=== PATIENT | male | born 1965 | race Caucasian/White ===

== ENCOUNTER 2017-08-22 15:40 | Emergency (ER) | payer BC ==
[2017-08-22 15:48] VITALS: RESP 18; O2SAT 100
--- NOTE | 2017-08-22 16:30 | C.PDOC ---
History Of Present Illness 52 year old male presents to the ER with a complaint of sudden onset of dizziness and lightheadedness. Patient states he has been sick for the past week with a productive cough with yellow sputum, fever, congestion; he was seen by Dr. Chaney who started him on augmentin and reports he has been feeling better. Today he states he got up feeling well, ate breakfast; a few hours later he felt hungry and while his was making him lunch he suddenly felt dizzy, lightheaded, and diaphoretic. Patient states he was able to sit and eat, afterwards he sat on the cough with the fan on and his symptoms resolved after a few minutes. Patient checked his blood sugar after eating but states his blood sugar is usually 250-300 after eating but today it was only 140. He tried calling his doctor but the office was closed, he went to a clinic where they checked his blood pressure and found it to be elevated at 150/110. Patient state he is on lisinopril, he saw his PMD recently who noticed his pressure was high and changed his dose from 10mg to 20mg. Denies chest pain, palpitations, SOB, abdominal pain, nausea, or vomiting. He feels comfortable at this time. Time Seen by Provider: 08/22/17 16:05 Chief Complaint (Nursing): Dizziness/Lightheaded History Per: Patient History/Exam Limitations: no limitations Onset/Duration Of Symptoms: Hrs Current Symptoms Are (Timing): Gone Activity At Onset Of Symptoms: Sitting Seizure Or Post-ictal Symptoms: None Fall Associated With With Symptoms: No Recent travel outside of the [place]: No - Symptoms Of CVA Associated Symptoms: denies: Impaired Speech, Seizure Activity, New Vision Deficit(Left), New Vision Deficit(Right), Decreased Ability To Walk, New Confusion Past Medical History Reviewed: Historical Data, Nursing Documentation, Vital Signs Vital Signs: Last Vital Signs Temp 97.3 F L 08/22/17 15:43 Pulse 99 H 08/22/17 15:43 Resp 18 08/22/17 15:43 BP 175/110 H 08/22/17 15:43 Pulse Ox 100 08/22/17 16:35 - Medical History PMH: HTN Family History: States: Unknown Family Hx - Social History Hx Alcohol Use: Yes Hx Substance Use: No - Immunization History Hx Tetanus Toxoid Vaccination: No Hx Influenza Vaccination: Yes Hx Pneumococcal Vaccination: No Review Of Systems Constitutional: Positive for: Sweats. Negative for: Fever, Chills Cardiovascular: Positive for: Light Headedness. Negative for: Chest Pain, Palpitations Respiratory: Negative for: Shortness of Breath Gastrointestinal: Negative for: Nausea, Vomiting, Abdominal Pain Neurological: Positive for: Dizziness Physical Exam - Physical Exam Appears: Non-toxic, No Acute Distress, Other (Blood sugar 190) Skin: Normal Color, Warm, Dry Head: Atraumatic, Normacephalic Eye(s): bilateral: Normal Inspection Oral Mucosa: Moist Neck: Normal Lymphatic: No Adenopathy Chest: Symmetrical, No Tenderness Cardiovascular: Rhythm Regular Respiratory: Normal Breath Sounds, No Rales, No Rhonchi, No Wheezing Gastrointestinal/Abdominal: Soft, No Tenderness Pulses: Left Carotid: Normal, Right Carotid: Normal Neurological/Psych: Oriented x3, Normal Speech, Normal Cognition, Normal Cranial Nerves, Normal Motor, Normal Sensation ED Course And Treatment - Laboratory Results Result Diagrams: 08/22/17 16:28 08/22/17 16:28 Lab Interpretation: No Acute Changes Interpretation Of Abnormal: glucose 216 ECG: Interpreted By Me, Viewed By Me ECG Rhythm: Sinus Rhythm ECG Interpretation: Normal Interpretation Of ECG: No acute changes Rate From EC O2 Sat by Pulse Oximetry: 100 (Room air) Pulse Ox Interpretation: Normal - Radiology CXR: Interpreted by Me CXR Interpretation: Yes: No Acute Disease Progress Note: EKG, blood work, CXR, and urinalysis ordered. Reevaluation Time: 17:10 Reassessment Condition: Improved (BP 143/100 and patient is asymptomatic) Disposition - Disposition Referrals: Annamarie Chaney MD [Medical Doctor] - Disposition: HOME/ ROUTINE Disposition Time: 17:10 Condition: IMPROVED Instructions: Low Blood Sugar in People With Diabetes, Dizziness, Nonvertigo, ( DC) Forms: [employer] ([place]ian) - Clinical Impression Clinical Impression: Dizziness - Scribe Statement The provider has reviewed the documentation as recorded by the Scribjaime Ernst All medical record entries made by the Scribe were at my direction and personally dictated by me. I have reviewed the chart and agree that the record accurately reflects my personal performance of the history, physical exam, medical decision making, and the department course for this patient. I have also personally directed, reviewed, and agree with the discharge instructions and disposition.
[2017-08-22 16:31] LABS: BASO % 0.4 % (0.0-2.0); EOS # 0.1 K/uL (0.0-0.7); EOS % 1.5 % (0.0-4.0); HEMOGLOBIN 15.5 g/dL (12.0-18.0); LYMPH # 1.7 K/uL (1.0-4.3); LYMPH % 18.1 % (20.0-40.0); MEAN CELL VOLUME 86.7 fL (80.0-94.0); MEAN CORPUSCULAR HEMOGLOBIN 29.2 pg (27.0-31.0); MEAN CORPUSCULAR HGB CONC 33.7 g/dL (33.0-37.0); MEAN PLATELET VOLUME 9.1 fL (7.2-11.7); MONO # 0.6 K/uL (0.0-0.8); NEUT # 6.7 K/uL (1.8-7.0); NRBC % 0.1 % (0.0-2.0); RBC 5.3 Mil/uL (4.40-5.90); RED CELL DISTRIBUTION WIDTH 12.7 % (11.5-14.5); WHITE BLOOD COUNT 9.1 K/uL (4.8-10.8)
--- NOTE | 2017-08-22 16:38 | RAD ---
PROCEDURE: CHEST RADIOGRAPH, 1 VIEW HISTORY: SOB COMPARISON: None available. FINDINGS: LUNGS: The lungs are well inflated and clear. PLEURA: No pneumothorax or pleural fluid seen. CARDIOVASCULAR: Normal. OSSEOUS STRUCTURES: No significant abnormalities. VISUALIZED UPPER ABDOMEN: Normal. OTHER FINDINGS: None. IMPRESSION: No active pulmonary disease.
[2017-08-22 16:45] LABS: ALB/GLOB RATIO 1.2 (1.0-2.1); ALBUMIN 3.9 g/dL (3.5-5.0); ALT/SGPT 62 U/L (21-72); AST/SGOT 39 U/L (17-59); BLOOD UREA NITROGEN 13 mg/dL (9-20); CALCIUM 8.9 mg/dl (8.6-10.4); GFR AFRICAN-AMERICAN > 60; GFR NON-AFRICAN AMERICAN > 60
[2017-08-22 17:09] LABS: SQUAMOUS EPITHIAL < 1 /hpf (0-5); URINE BACTERIA RARE (<OCC); URINE BILIRUBIN NEGATIVE (NEGATIVE); URINE BLOOD NEGATIVE (NEGATIVE); URINE CLARITY Clear (Clear); URINE COLOR Yellow (YELLOW); URINE GLUCOSE (UA) 2+ mg/dL (Normal); URINE LEUKOCYTE ESTERASE NEG Leu/uL (Negative); URINE PROTEIN 2+ mg/dL (NEGATIVE); URINE UROBILINOGEN NORMAL mg/dL (0.2-1.0)
[2017-08-22 17:10] VITALS: BP 142/92; PULSE 88; TEMP 97.8
--- NOTE | 2017-08-24 13:03 | CARD ---
APPROVED REPORT EKG Measurement Heart [id number] <Conclusion> Normal sinus rhythm Normal ECG
== END 2017-08-22 17:31 | disposition home or self-care (01) ==
LOC: C.ER 15:40
DX: R42 Dizziness and giddiness (principal)